=== PATIENT | female | born 1975 | race Caucasian/White ===

== ENCOUNTER 2016-12-27 06:38 | Day surgery (SDC) | payer BC, OTHER ==
[~2016-12-27 06:38] MED LIST: Buffered Lidocaine 0.9% SYRIN* 5 ML/SYR SYRINGE INTRADERM ONE; Ibuprofen TAB* 400 MG PO ONE; Sodium Citrate/Citric Acid* 15 ML UDC PO ONE
[2016-12-27] MEDS ORDERED: Ibuprofen TAB* 400 MG ONE (07:07)
[2016-12-27] MEDS ORDERED: Sodium Citrate/Citric Acid* 15 ML UDC ONE (07:08)
[2016-12-27] MEDS ORDERED: ceFAZolin 2 GM PREMIX(*) 2 GM/50 ML BAG IVPB ONE (07:17)
[2016-12-27] MEDS ORDERED: Bupivacaine 0.25% SDV* 30 ML ONE ×2 (07:20→08:59)
[2016-12-27] MEDS ORDERED: Lidocaine 2% PF * 5 ML VIAL ONE (07:54)
[2016-12-27] MEDS ORDERED: Propofol* 10 MG/ML 20 ML BTL IV PUSH ONE (07:54)
[2016-12-27] MEDS ORDERED: fentaNYL* 50 MCG/ML 2 ML VIAL (100 MCG VIAL) ONE (07:54)
[2016-12-27] MEDS ORDERED: fentaNYL* 50 MCG/ML 2 ML VIAL (100 MCG VIAL) IV PRN (08:15)
[2016-12-27] MEDS ORDERED: DiMENhydriNATE IV* 50 MG/ML VIAL IV PUSH PRN (08:15)
[2016-12-27] MEDS ORDERED: Ondansetron INJ* 2 MG/ML VIAL IV PRN (08:15)
[2016-12-27] MEDS ORDERED: oxyCODONE/Acetamin 5/325 MG* TAB PO PRN (08:15)
[2016-12-27 09:55] VITALS: BP 122/72
--- NOTE | 2016-12-27 11:37 | OP ---
OPERATIVE REPORT: DATE OF OPERATION: 12/27/16 DATE OF : 71 SURGEON: Viral Lynch MD DIRECTOR REGULATORY AGENCY: GIULIA Raymond An diver assistant was needed for the procedure to aid in retraction and positioning of the arm, the cubit al tunnel portion of the procedure. ANESTHESIOLOGIST: Dr. Llanes. ANESTHESIA: General. PRE-OP DIAGNOSES: 1. Right carpal tunnel release. 2. Right cubital tunnel release. POST-OP DIAGNOSES: 1. Right carpal tunnel release. 2. Right cubital tunnel release. PROCEDURE PERFORMED: 1. Right open carpal tunnel release. 2. Right in situ cubital tunnel release. INDICATIONS: Mariaelena has had progressive symptoms. She had electrodiagnostic evidence of carpal mary tere syndrome and clinically she very much had cubital tunnel syndrome. We had talked to her about r isks and benefits of the surgery in detail and she had elected to proceed. ESTIMATED BLOOD LOSS: 5 mL. COMPLICATIONS: None. FINDINGS: As expected. DESCRIPTION OF PROCEDURE: Mariaelena was seen in the preoperative holding area. The correct side, site and procedure were identified. We came back to the operating room, anesthesia was induced. The a rm was prepped and draped in the usual fashion and a formal time-out was performed. I began by examining the extremities with an Esmarch and the tourniquet was inflated to 250 mmHg. I then made a longitudinal incision about 2 to 3 cm in length in a standard location for an open carp al tunnel release, difficult location for open carpal tunnel release. Dissection was carried down t hrough the subcutaneous tissue and gil fascia to expose the transverse carpal ligament. The hook and the hamate were identified. The transverse carpal ligament was released just off the radial asp ect of the hook and the hamate. The transverse carpal ligament was released from distal to proximal . The subcutaneous tissue proximally was released and retracted volarly and ulnarly. The remainder of the transverse carpal ligament and the distal end of brachial fascia was released after Irina oviedo ractor had been replaced just off the ulnar aspect of the palmaris longus tendon. Then came back theodora artis and released few more fibers of the transverse carpal ligament distally. The release was com pleted until there was absolutely no compression on the nerve. That wound was then irrigated and th e skin was closed with 4-0 nylon suture. I then turned my attention to the elbow where an incision was drawn out centering over Lyn's lig ament and then proximally and distally in line with the ulnar nerve about 3 to 4 cm in each directio n. Dissection was carried down through the subcutaneous tissue with the Bovie proximally, then dist ally a very robust medial antebrachial nerve was dissected out and this was preserved throughout the entirety of the case. I began to release proximal aspect of Lyn's ligament where the ulnar ner ve was identified just on the anterior aspect of the triceps. The release was continued proximally with the use of an appendiceal retractor, passed 8 cm proximal to the medial epicondyle. I then halina t distally and released Lyn's ligament. The superficial FCU fascia was then released. The musc le fibers were then split longitudinally with the omni retractor and then the subfascial layer was r eleased. The motor branches to the FCU heads were identified and protected. There was quite a bit o f a compression right under Lyn's ligament. It was apparent there had been quite a bit of compr ession underneath Lyn's ligament on the ulnar nerve. Once release was completed distally, relea sing the entirety of the FCU fascia, the decompression was checked. The elbow was taken to flexion and extension and there was absolutely no instability in the nerve. The hemostasis was obtained wit h Bovie cautery. The wound was irrigated. The subcutaneous tissue was reapproximated with 3-0 Poly sorb suture. The skin was closed with 4-0 nylon suture. The operative areas were then infiltrated with 0.25% plain Marcaine. The wounds were then dressed with Xeroform, 4 x4s, sterile Webril, an AB D at the elbow and then Mian bandages. Tourniquet was then deflated and the hand pinked up immediate ly. She was then woken up and taken to recovery room in stable condition. [id number]/[facility] #: [id number]
== END 2016-12-27 09:55 | disposition home or self-care (01) ==
LOC: OREAST 06:38
PROVIDERS: ATTEND Orthopaedic Surgery Hand Surgery
DX: G56.01 Carpal tunnel syndrome, right upper limb (principal); G56.21 Lesion of ulnar nerve, right upper limb; J45.909 Unspecified asthma, uncomplicated
CPT/HCPCS: 81025; A9270-GY; J0690; J2704; J3010

== ENCOUNTER 2018-05-24 07:52 | Emergency (ER) | payer BC, OTHER ==
[2018-05-24 08:18] VITALS: BP 116/83
--- NOTE | 2018-05-24 08:43 | UC ---
Eye Complaint HPI - HPI Summary HPI Summary: Per network account manager "Headache and dry eyes for four days. Preauricular localized swelling and left upper lid erytheme and swelling for two days. Has become more painful and right eye is starting to itch." -eyes crusted shut this AM, right more than left. no FB. no trauma. no visual disturbance - History of Current Complaint Chief Complaint: UCEye Stated Complaint: BILATERAL EYE COMPLAINT Time Seen by Provider: 05/24/18 08:33 Hx Last Menstrual Period: "Beginning of this month" Pain Intensity: 4 - Allergies/Home Medications Allergies/Adverse Reactions: Allergies Allergy/AdvReac Type Severity Reaction Status Date / Time latex Allergy Rash Verified 05/24/18 08:14 Home Medications: Home Medications Albuterol HFA INHALER* [Ventolin HFA Inhaler*] 1 - 2 puff INH Q4H PRN 05/24/18 [ History Confirmed 05/24/18] Ibuprofen TAB* [Advil TAB*] 800 mg PO Q8H PRN 05/24/18 [History Confirmed ] PMH/Surg Hx/FS Hx/Imm Hx Previously Healthy: Yes Respiratory History: Asthma - Surgical History Surgical History: Yes Surgery Procedure, Year, and Place: Bilateral Breast Reduction, 2004, [place] - Family History Known Family History: Positive: Hypertension - Social History Alcohol Use: Occasionally Alcohol Amount: 2 DRINKS/MONTH Substance Use Type: None Smoking Status (MU): Never Smoked Tobacco Have You Smoked in the Last Year: No Review of Systems All Other Systems Reviewed And Are Negative: Yes Constitutional: Positive: Negative Skin: Positive: Negative Eyes: Positive: Eye Redness ENT: Positive: Negative Respiratory: Positive: Negative Cardiovascular: Positive: Negative Gastrointestinal: Positive: Negative Genitourinary: Positive: Negative Motor: Positive: Negative Neurovascular: Positive: Negative Musculoskeletal: Positive: Negative Neurological: Positive: Negative Psychological: Positive: Negative Is Patient Immunocompromised?: No Physical Exam Triage Information Reviewed: Yes Appearance: Well-Appearing - very pleasant. good historian, No Pain Distress, Well-Nourished Vital Signs: Initial Vital Signs Temp 98 F 05/24/18 08:12 Pulse 75 05/24/18 08:12 Resp 16 05/24/18 08:12 BP 116/83 05/24/18 08:12 Pulse Ox 99 05/24/18 08:12 Vital Signs Reviewed: Yes Eyes: Positive: Conjunctiva Inflamed - mild left > right, Other: - left upper eyelid with mild mod swelling and mild-erythema of mid lid moving medially. ENT: Positive: Pharynx normal, Other - TMs not visble due to deep soft cerumen. canals nml. + left pre-auricular soft lymph node enlargement. Negative: Nasal congestion Dental Exam: Normal Neck exam: Normal Neck: Positive: Supple, Nontender, No Lymphadenopathy Respiratory Exam: Normal Respiratory: Positive: Lungs clear, Normal breath sounds, No respiratory distress, No accessory muscle use. Negative: Crackles, Rhonchi, Stridor, Wheezing Cardiovascular Exam: Normal Cardiovascular: Positive: RRR, No Murmur, Pulses Normal, Brisk Capillary Refill Musculoskeletal Exam: Normal Neurological Exam: Normal Psychological Exam: Normal Skin Exam: Normal Eye Complaint Course/Dx - Course Course Of Treatment: B/l mild conjucntivitis. moderate left upper eye lid stye. -needs to f/u with optho in 2 days. prefers to see local optho and will provide local and [facility] names to see who will be open on [place]. -also requests RF of alb for mild increase sx due to change in weather. no exacerbation - Differential Dx/Diagnosis Differential Diagnosis/HQI/PQRI: Conjunctivitis, Other - stye, asthma Provider Diagnosis: Stye, Conjunctivitis Discharge - Sign-Out/Discharge Documenting (check all that apply): Patient Departure All imaging exams completed and their final reports reviewed: No Studies - Discharge Plan Condition: Stable Disposition: HOME Prescriptions: Albuterol HFA INHALER* [Ventolin HFA Inhaler*] 2 puff INH Q4H PRN #1 mdi PRN Reason: Cough Gentamicin 0.3% OPTH.OINT* 1 applic .SEE ORDER TID 5 Days #1 oint Patient Education Materials: Stye (ED), Conjunctivitis (ED) Referrals: Monae Frankel PA [Primary Care Provider] - Selena NAGY,Radha [Medical Doctor] - Marcellus Monroe MD [Medical Doctor] - Additional Instructions: You can call either eye doctor above according to who is open on [place] luna and your convenience. You should go to the ER with any fevers or chills or worsening symptoms prior to going to the specialist. - Billing Disposition and Condition Condition: STABLE Disposition: Home
== END 2018-05-24 09:02 | disposition home or self-care (01) ==
LOC: UCCORT 07:52
DX: H00.014 Hordeolum externum left upper eyelid (principal); H10.9 Unspecified conjunctivitis; J45.909 Unspecified asthma, uncomplicated
CPT/HCPCS: 99212; G0463